=== PATIENT | female | born 1995 | race Caucasian/White ===

== ENCOUNTER 2017-09-01 16:05 | Emergency (ER) | payer BC ==
[2017-09-01] MEDS ORDERED: Ketorolac 60 MG/2 ML SDV IM ONE (16:33)
[2017-09-01] MEDS ORDERED: Ondansetron 4 MG Tab.DIS PO ONE (16:33)
--- NOTE | 2017-09-01 16:33 | EDM.PDOC ---
ED HPI GENERAL MEDICAL PROBLEM - General Chief Complaint: Chest Pain Stated Complaint: PT HAS CHEST PAINS Time Seen by Provider: 09/01/17 16:21 Source of Information: Reports: Patient History Limitations: Reports: No Limitations - History of Present Illness INITIAL COMMENTS - FREE TEXT/NARRATIVE: HISTORY AND PHYSICAL: History of present illness: Patient is a 21-year-old female who presents [facility] the emergency [facility] local [facility] with complaints of midsternal chest pain, nausea and throat pain. Denies any shortness of breath, fever, chills, abdominal pain or diarrhea. Denies any recent injury or trauma. History of injectable heroin use which she reports she has not used and 1-1/2 months. 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 Patient does not remember when she's had her LMP, Reports it's been over a year. She states this is due to her drug use. Review of systems: As per history of present illness and below otherwise all systems reviewed and negative. Past medical history: As per history of present illness and as reviewed below otherwise noncontributory. Surgical history: As per history of present illness and as reviewed below otherwise noncontributory. Social history: No reported history of drug or alcohol abuse. Family history: As per history of present illness and as reviewed below otherwise noncontributory. Physical exam: Gen.: Nontoxic appearing 21-year-old female. Well-developed, alert and oriented. Appears to be no acute distress HEENT: Atraumatic, normocephalic, pupils reactive, negative for conjunctival pallor or scleral icterus, mucous membranes moist, throat clear, neck supple, nontender, trachea midline. Lungs: Clear to auscultation, breath sounds equal bilaterally, chest nontender. Heart: S1S2, regular rate and rhythm Abdomen: Soft, nondistended, nontender. Negative for masses or hepatosplenomegaly. Negative for costovertebral tenderness. Pelvis: Stable nontender. Genitourinary: Deferred. Rectal: Deferred. Extremities: Atraumatic, negative for cords or calf pain. Neurovascular unremarkable. Neuro: Awake, alert, oriented. Cranial nerves II through XII unremarkable. Cerebellum unremarkable. Motor and sensory unremarkable throughout. Exam nonfocal. Diagnostics: CBC, CMP, troponin, chest x-ray, strep Therapeutics: Toradol IM and Zofran ODT Impression: Nonspecific chest pain Pharyngitis Plan: 1. Please continue to use Tylenol and/or ibuprofen as needed for pain management. 2. Continue to abstain from drug use. 3. Follow-up with your primary care provider in the next 1-2 days. Return to the ED as needed and as discussed. Definitive disposition and diagnosis as appropriate pending reevaluation and review of above. Duration: Day(s): Location: Reports: Neck, Chest Midsternal Chest Pain Pain Score (Numeric/FACES): 6 - Related Data Allergies Allergy/AdvReac Type Severity Reaction Status Date / Time medical tape Allergy Rash Uncoded 09/01/17 16:09 Home Meds: Home Meds . [No Known Home Meds] 09/01/17 [History] Past Medical History - Past Health History Medical/Surgical History: Denies Medical/Surgical History - Infectious Disease History Infectious Disease History: Reports: Other (See Below) Other Infectious Disease History: "never been tested but share needles with people that have hep" Social & Family History - Family History Family Medical History: Noncontributory - Tobacco Use Smoking Status *Q: Current Every Day Smoker Years of Tobacco use: 2 Packs/Tins Daily: 0.5 - Caffeine Use Caffeine Use: Reports: None - Recreational Drug Use Recreational Drug Use: Yes Drug Use in Last 12 Months: Yes Recreational Drug Type: Reports: Heroin Recreational Drug Use Frequency: Not Used In Over 1 Month ED ROS GENERAL - Review of Systems Review Of Systems: ROS reveals no pertinent complaints other than HPI. ED EXAM, GENERAL - Physical Exam Exam: See Below (See dictation) Course - Vital Signs Last Recorded V/S: Last Vital Signs Temp 36.3 C 09/01/17 16:12 Pulse 100 09/01/17 16:12 Resp 16 09/01/17 16:12 BP 134/94 H 09/01/17 16:12 Pulse Ox 98 09/01/17 16:12 - Orders/Labs/Meds Orders: Active Orders 24 hr Category Date Time Status EKG Documentation Completion [RC] STAT Care 09/01/17 16:24 Active Chest 1V Frontal [CR] Stat Exams 09/01/17 16:25 Taken CULTURE STREP A CONFIRMATION [RM] Stat Lab 09/01/17 16:35 Results STREP SCRN A RAPID W CULT CONF [RM] Stat Lab 09/01/17 16:35 Results Labs: Laboratory Tests 09/01/17 09/01/17 09/01/17 Range/Units 16:47 16:47 16:58 WBC 6.91 (4.0-11.0) K/uL RBC 5.53 (4.30-5.90) M/uL Hgb 15.5 (12.0-16.0) g/dL Hct 45.1 (36.0-46.0) % MCV 81.6 (80.0-98.0) fL MCH 28.0 (27.0-32.0) pg MCHC 34.4 (31.0-37.0) g/dL RDW Std Deviation 43.3 (28.0-62.0) fl RDW Coeff of Germán 15 (11.0-15.0) % Plt Count 328 (150-400) K/uL MPV 9.50 (7.40-12.00) fL Neut % (Auto) 55.6 (48.0-80.0) % Lymph % (Auto) 32.6 (16.0-40.0) % [place] % (Auto) 11.4 (0.0-15.0) % Eos % (Auto) 0.1 (0.0-7.0) % Baso % (Auto) 0.3 (0.0-1.5) % Neut # (Auto) 3.8 (1.4-5.7) K/uL Lymph # (Auto) 2.3 (0.6-2.4) K/uL [place] # (Auto) 0.8 (0.0-0.8) K/uL Eos # (Auto) 0.0 (0.0-0.7) K/uL Baso # (Auto) 0.0 (0.0-0.1) K/uL Nucleated RBC % 0.0 /100WBC Nucleated RBCs # 0 K/uL Sodium 138 (136-146) mmol/L Potassium 4.5 (3.5-5.1) mmol/L Chloride 104 (98-110) mmol/L Carbon Dioxide 22 (21-31) mmol/L BUN 17 (6.0-23.0) mg/dL Creatinine 0.9 (0.6-1.5) mg/dL Est Cr Clr Drug Dosing TNP Estimated GFR (MDRD) > 60.0 ml/min Glucose 96 (60-110) mg/dL Calcium 10.5 (8.8-10.8) mg/dL Total Bilirubin 0.7 (0.1-1.5) mg/dL AST 20 (5-40) IU/L ALT 17 (8-54) IU/L Alkaline Phosphatase 94 (40-150) Troponin I < 0.10 (0.0-0.29) NG/ML Total Protein 9.0 H (6.0-8.0) g/dL Albumin 5.0 (3.5-5.0) g/dL Globulin 4.0 H (2.0-3.5) g/dL Albumin/Globulin Ratio 1.3 (1.3-2.8) Urine Color Urine Appearance Urine pH (5.0-8.0) Ur Specific [place] (1.001-1.035) Urine Protein (NEGATIVE) mg/dL Urine Glucose (UA) (NEGATIVE) mg/dL Urine Ketones (NEGATIVE) mg/dL Urine Occult Blood (NEGATIVE) Urine Nitrite (NEGATIVE) Urine Bilirubin (NEGATIVE) Urine Ictotest Urine Urobilinogen (<2.0) EU/dL Ur Leukocyte Esterase (NEGATIVE) Urine RBC (0-2/HPF) Urine WBC (0-5/HPF) Ur Epithelial Cells (NONE-FEW) Urine Bacteria (NEGATIVE) Urine Mucus (NONE-MOD) Urine Yeast Urine HCG, Qual NEGATIVE (NEGATIVE) 09/01/17 Range/Units 16:58 WBC (4.0-11.0) K/uL RBC (4.30-5.90) M/uL Hgb (12.0-16.0) g/dL Hct (36.0-46.0) % MCV (80.0-98.0) fL MCH (27.0-32.0) pg MCHC (31.0-37.0) g/dL RDW Std Deviation (28.0-62.0) fl RDW Coeff of Germán (11.0-15.0) % Plt Count (150-400) K/uL MPV (7.40-12.00) fL Neut % (Auto) (48.0-80.0) % Lymph % (Auto) (16.0-40.0) % [place] % (Auto) (0.0-15.0) % Eos % (Auto) (0.0-7.0) % Baso % (Auto) (0.0-1.5) % Neut # (Auto) (1.4-5.7) K/uL Lymph # (Auto) (0.6-2.4) K/uL [place] # (Auto) (0.0-0.8) K/uL Eos # (Auto) (0.0-0.7) K/uL Baso # (Auto) (0.0-0.1) K/uL Nucleated RBC % /100WBC Nucleated RBCs # K/uL Sodium (136-146) mmol/L Potassium (3.5-5.1) mmol/L Chloride (98-110) mmol/L Carbon Dioxide (21-31) mmol/L BUN (6.0-23.0) mg/dL Creatinine (0.6-1.5) mg/dL Est Cr Clr Drug Dosing Estimated GFR (MDRD) ml/min Glucose (60-110) mg/dL Calcium (8.8-10.8) mg/dL Total Bilirubin (0.1-1.5) mg/dL AST (5-40) IU/L ALT (8-54) IU/L Alkaline Phosphatase (40-150) Troponin I (0.0-0.29) NG/ML Total Protein (6.0-8.0) g/dL Albumin (3.5-5.0) g/dL Globulin (2.0-3.5) g/dL Albumin/Globulin Ratio (1.3-2.8) Urine Color YELLOW Urine Appearance CLEAR Urine pH 6.0 (5.0-8.0) Ur Specific [place] 1.025 (1.001-1.035) Urine Protein NEGATIVE (NEGATIVE) mg/dL Urine Glucose (UA) NEGATIVE (NEGATIVE) mg/dL Urine Ketones 15 H (NEGATIVE) mg/dL Urine Occult Blood SMALL H (NEGATIVE) Urine Nitrite NEGATIVE (NEGATIVE) Urine Bilirubin SMALL H (NEGATIVE) Urine Ictotest NEGATIVE Urine Urobilinogen 0.2 (<2.0) EU/dL Ur Leukocyte Esterase TRACE (NEGATIVE) Urine RBC 0-2 (0-2/HPF) Urine WBC 2-4 (0-5/HPF) Ur Epithelial Cells FEW (NONE-FEW) Urine Bacteria FEW (NEGATIVE) Urine Mucus LIGHT (NONE-MOD) Urine Yeast FEW Urine HCG, Qual (NEGATIVE) Meds: Medications Discontinued Medications Generic Name Dose Route Start Last Admin Trade Name Gregor PRN Reason Stop Dose Admin Ketorolac Tromethamine 60 mg 09/01/17 16:33 09/01/17 16:50 Toradol IM 09/01/17 16:34 60 mg ONETIME ONE Administration Ondansetron HCl 4 mg 09/01/17 16:33 09/01/17 16:50 Zofran Odt PO 09/01/17 16:34 4 mg ONETIME ONE Administration Departure - Departure Time of Disposition: 17:54 Disposition: Home, Self-Care 01 Clinical Impression: Nonspecific chest pain, Sore throat (viral) Instructions: Nonspecific Chest Pain, [id number] Referrals: PCP,None [Primary Care Provider] - Forms: ED Department Discharge Additional Instructions: My general discharge The following information is given to patients seen in the emergency department who are being discharged to home. This information is to outline your options for follow-up care. We provide all patients seen in our emergency department with a follow-up referral. The need for follow-up, as well as the timing and circumstances, are variable depending upon the specifics of your emergency department visit. If you don't have a primary care physician on staff, we will provide you with a referral. We always advise you to contact your personal physician following an emergency department visit to inform them of the circumstance of the visit and for follow-up with them and/or the need for any referrals to a consulting specialist. The emergency department will also refer you to a specialist when appropriate. This referral assures that you have the opportunity for follow-up care with a specialist. All of these measure are taken in an effort to provide you with optimal care, which includes your follow-up. Under all circumstances we always encourage you to contact your private physician who remains a resource for coordinating your care. When calling for follow-up care, please make the office aware that this follow-up is from your recent emergency room visit. If for any reason you are refused follow-up, please contact the [facility] Emergency Department at and asked to speak to the emergency department charge nurse. [facility] [address] [place] [id number] Your labs were normal today. Vitals are stable. Released back to custody of law enforcement. 1. Please continue to use Tylenol and/or ibuprofen as needed for pain management. 2. Continue to abstain from drug use. 3. Follow-up with your primary care provider in the next 1-2 days. Return to the ED as needed and as discussed. - My Orders Last 24 Hours: My Active Orders 09/01/17 16:24 EKG Documentation Completion [RC] STAT 09/01/17 16:25 Chest 1V Frontal [CR] Stat 09/01/17 16:35 CULTURE STREP A CONFIRMATION [RM] Stat STREP SCRN A RAPID W CULT CONF [RM] Stat - Assessment/Plan Last 24 Hours: My Active Orders 09/01/17 16:24 EKG Documentation Completion [RC] STAT 09/01/17 16:25 Chest 1V Frontal [CR] Stat 09/01/17 16:35 CULTURE STREP A CONFIRMATION [RM] Stat STREP SCRN A RAPID W CULT CONF [RM] Stat
[2017-09-01 17:14] LABS: CHLORIDE,CL 104 mmol/L (98-110); SODIUM,NA 138 mmol/L (136-146)
--- NOTE | 2017-09-03 14:34 | CR ---
EXAM DATE: 09/01/17 PATIENT'S AGE: 21 Patient: [facility] Facility: [place], [place] Site . Site : [id number] Study: XRay Chest [id number] 4:55:36 PM Ordering Physician: Doctor Vizcarra Final Report: INDICATION: chest pain INDICATION: Chest pain. TECHNIQUE: Chest 1 view. COMPARISON: None FINDINGS: Cardiovascular and mediastinum: Heart size and vasculature are normal in caliber and appearance. Mediastinum is within normal limits. Lungs and pleural space: Lungs are clear. No sign of infiltrate or mass. No sign of pleural effusion. No pneumothorax. Bones and soft tissues: No significant findings. IMPRESSION: Lungs are clear. Dictated by Parish Bridges MD @ 09/01/2017 5:38:44 PM Dictated by: Parish Bridges MD @ 09/01/2017 17:38:56 (Electronic Signature) Report Signed by Proxy. KALEE
== END 2017-09-01 18:13 | disposition home or self-care (01) ==
LOC: MW.ED 16:05
DX: R07.89 Other chest pain (principal); J02.9 Acute pharyngitis, unspecified; F17.210 Nicotine dependence, cigarettes, uncomplicated
CPT/HCPCS: 36415; 71010; 80053; 81001; 81025; 84484; 85025; 87081; 87880; 93005; 96372; 99285; A9270; J1885; 99282